=== PATIENT | male | born 1960 | race American Indian/Alaskan Native ===

== ENCOUNTER 2018-06-25 09:52 | Inpatient (IN) | payer MEDICAID, MEDICARE ==
[2018-06-25] MEDS ORDERED: ASPIRIN PO ONE (10:12)
[2018-06-25 10:38] LABS: Basophils % (Auto) 1.2 % (0.0-1.8); Eosinophils # (Auto) 0.1 K/mm3 (0.0-0.4); Eosinophils % (Auto) 1.3 % (0.0-4.3); Hematocrit 36.3 % (35.5-45.6); Hemoglobin 12.3 gm/dl (11.8-15.2); Lymphocytes # (Auto) 1.7 K/mm3 (1.2-5.4); Lymphocytes % (Auto) 40.4 % (13.4-35.0); Mean Corpuscular HGB Conc 34 % (32-34); Mean Corpuscular Volume 89 fl (84-94); Monocytes # (Auto) 0.3 K/mm3 (0.0-0.8); Monocytes % (Auto) 7.5 % (0.0-7.3); Platelet Count 287 K/mm3 (140-440); Red Blood Count 4.07 M/mm3 (3.65-5.03); Red Cell Distribution Width 13.8 % (13.2-15.2)
[2018-06-25 11:01] LABS: BUN/Creatinine Ratio 12; Blood Urea Nitrogen 11 mg/dL (9-20); Calcium 8.7 mg/dL (8.4-10.2); Hemolysis Index 11
[2018-06-25] MEDS ORDERED: SUBLIMAZE IV ONE ×2 (11:12→15:55)
[2018-06-25] MEDS ORDERED: ZOFRAN IV ONE (11:12)
[2018-06-25] MEDS ORDERED: NITRO-BID 2% TP ONE (11:12)
--- NOTE | 2018-06-25 11:16 | Emergency Department Report ---
HPI - General Chief Complaint: Chest Pain Time Seen by Provider: 06/25/18 11:05 - HPI HPI: Room 5 The patient is a 58-year-old male presenting with a chief complaint of chest pain. The patient states the past 2 days he's had left-sided chest pain descri bed as pressure with a pleuritic component. Patient admits to shortness of breath, nausea/vomiting and diaphoresis with chest pain. Patient also complains of bilateral lower extremity pain for one week. Patient denies any recent flights or long car trips. Patient also complains of diffuse weakness. Patient gives his pain a score of 5/10. The patient states he's never had a stress test or cardiac catheterization Location: [See above] Duration: Days Quality: Pressure Severity: [See above] Modifying factors: [see above] Context: [see above] Mode of transportation: [not driving] ED Past Medical Hx - Past Medical History Additional medical history: prostate CA status post cryotherapy - Surgical History Past Surgical History?: No - Family History Family history: no significant - Social History Smoking Status: Never Smoker Substance Use Type: None (denies illicit drug use) - Medications Home Medications: Home Medications Medication Instructions Recorded Confirmed Last Taken Type Buspirone HCl [busPIRone] 15 mg PO BID 06/25/18 06/25/18 Unknown History DULoxetine [Cymbalta] 30 mg PO QDAY 06/25/18 06/25/18 Unknown History Duloxetine HCl [Cymbalta] 60 mg PO QDAY 06/25/18 06/25/18 Unknown History Ergocalciferol (Vitamin D2) 50,000 unit PO QWEEK 06/25/18 06/25/18 Unknown History [Drisdol] Lisinopril [Zestril] 20 mg PO QDAY 06/25/18 06/25/18 Unknown History Lubiprostone [Amitiza] 24 mcg PO BID 06/25/18 06/25/18 Unknown History Tamsulosin HCl [Flomax] 0.4 mg PO DAILY 06/25/18 06/25/18 Unknown History hydroCHLOROthiazide [HCTZ] 25 mg PO QDAY 06/25/18 06/25/18 Unknown History risperiDONE [RisperDAL] 3 mg PO HS 06/25/18 06/25/18 Unknown History ED Review of Systems ROS: Stated complaint: CHEST PAIN Other details as noted in HPI Constitutional: diaphoresis, weakness Eyes: denies: eye pain ENT: denies: throat pain Respiratory: shortness of breath Cardiovascular: chest pain Endocrine: no symptoms reported Gastrointestinal: nausea, vomiting Genitourinary: denies: dysuria Musculoskeletal: denies: back pain Neurological: denies: headache Physical Exam - Physical Exam Vital Signs: Vital Signs 06/25/18 06/25/18 06/25/18 10:11 10:32 10:34 Temperature 97.7 F Pulse Rate 86 63 Respiratory 22 20 21 Rate Blood Pressure 146/90 131/79 [Left] O2 Sat by Pulse 91 100 100 Oximetry Physical Exam: GENERAL: The patient is well-developed well-nourished male lying on stretcher not appearing to be in acute distress. [] HEENT: Normocephalic. Atraumatic. Extraocular motions are intact. Patient has moist mucous membranes. NECK: Supple. Trachea midline CHEST/LUNGS: Clear to auscultation. There is no respiratory distress noted. HEART/CARDIOVASCULAR: Regular. There is no tachycardia. There is no gallop rub or murmur. ABDOMEN: Abdomen is soft, nontender. Patient has normal bowel sounds. There is no abdominal distention. SKIN: There is no rash. There is no edema. There is no diaphoresis. NEURO: The patient is awake, alert, and oriented. The patient is cooperative. The patient has normal speech MUSCULOSKELETAL: There is no evidence of acute injury. ED Course Vital Signs 06/25/18 06/25/18 06/25/18 10:11 10:32 10:34 Temperature 97.7 F Pulse Rate 86 63 Respiratory 22 20 21 Rate Blood Pressure 146/90 131/79 [Left] O2 Sat by Pulse 91 100 100 Oximetry ED Medical Decision Making - Lab Data Result diagrams: 06/25/18 10:27 06/25/18 10:27 Laboratory Tests 06/25/18 06/25/18 06/25/18 10:27 10:27 10:27 WBC 4.2 L RBC 4.07 Hgb 12.3 Hct 36.3 MCV 89 MCH 30 MCHC 34 RDW 13.8 Plt Count 287 Lymph % (Auto) 40.4 H [place] % (Auto) 7.5 H Eos % (Auto) 1.3 Baso % (Auto) 1.2 Lymph # 1.7 [place] # 0.3 Eos # 0.1 Baso # 0.0 Seg Neutrophils % 49.6 Seg Neutrophils # 2.1 D-Dimer 286.68 H Sodium 139 Potassium 3.5 L Chloride 100.5 Carbon Dioxide 22 Anion Gap 20 BUN 11 Creatinine 0.9 Estimated GFR > 60 BUN/Creatinine Ratio 12 Glucose 170 H Calcium 8.7 Troponin T < 0.010 - EKG Data -: EKG Interpreted by [place] EKG shows normal: sinus rhythm Rate: normal - EKG Data When compared to previous EKG there are: previous EKG unavailable Interpretation: nonspecific ST-T wave katya (T-wave inversions in leads V4, V5, V6) - Radiology Data Radiology results: report reviewed (CT chest), image reviewed (CT chest) [facility] [address] [id number] Cat Scan Report Signed Patient: TRISHA LEONARD JR MR#: [id number] : 1960 Acct:[id number] Age/Sex: 58 / M ADM Date: 06/25/18 Loc: ED [facility] Dr: Ordering Physician: WILFREDO WEST MD Date of Service: 06/25/18 Procedure(s): CT angio chest Accession Number(s): [id number] cc: WILFREDO WEST MD FINAL REPORT EXAM: CT ANGIO CHEST HISTORY: chest pain, pleurisy TECHNIQUE: CTA of the chest was performed after the administration of intravenous contrast. Rotating MIPS were included. Reconstructions were included in the coronal and sagittal planes. PRIORS: None. FINDINGS: Pulmonary arteries and thoracic aorta: The study is adequate for diagnostic purposes. No central or segmental pulmonary embolism. The thoracic aorta is normal in caliber. Lungs and airways: No pleural effusion. No airspace consolidation. The airways are patent. No bronchiectasis. No pulmonary nodules or masses. Mediastinum, heart, pericardium: No mediastinal lymphadenopathy. No cardiac chamber enlargement. No pericardial effusion. Thoracic inlet, chest wall, axilla: No chest wall masses. The visualized portions of the thyroid gland demonstrate no focal lesion. No axilla ry lymphadenopathy. Upper abdomen: Colonic diverticulosis is seen. Small probable simple left renal cyst is seen. Bones: Degenerative changes are seen in the spine. IMPRESSION: 1. No central or segmental pulmonary embolism. 2. Colonic diverticulosis. 3. Small probable simple left renal cyst. Transcribed By: MG Dictated By: IBAN LAY MD Electronically Authenticated By: IBAN LAY MD Signed Date/Time: 06/25/181345 DD/ 43 TD/TT: 06/25/18 1344 - Medical Decision Making Heart score = 2 History Slightly suspicious= 0 Moderately suspicious= +1 Highly suspicious= +2 EKG Normal= 0 Nonspecific repolarization disturbance= +[address] depression= +2 Risk factors None= 0 1-2= +1 =/>3 = +2 Initial troponin Normal = 0 1-3 times normal= +1 > 3 times normal equals +2 - Differential Diagnosis ACS, PE, pericarditis, GERD Critical care attestation.: If time is entered above; I have spent that time in minutes in the direct care o f this critically ill patient, excluding procedure time. ED Disposition Clinical Impression: Chest pain Disposition: DC-09 OP ADMIT IP TO THIS HOSP Is pt being admited?: Yes Does the pt Need Aspirin: Yes Condition: Fair Instructions: Chest Pain (ED) Referrals: DARREN GILES MD [Primary Care Provider] - 3-5 Days Time of Disposition: 13:50 (hospitalist paged (Dr Sutton))
--- NOTE | 2018-06-25 13:09 | Vascular Lab Report ---
FINAL REPORT EXAM: VL VENOUS DUPLEX LE BILAT HISTORY: bilateral lower extremity pain TECHNIQUE: Grayscale and color and spectral Doppler ultrasound imaging of the bilateral lower extrem ity was performed for the purposes of assessing for deep venous thrombosis. PRIORS: None. FINDINGS: No evidence of deep venous thrombosis is seen within the common femoral through the posterior tibial and peroneal vein. Normal compression and color flow is seen throughout the venous system of the bila teral lower extremities. Normal augmentation was seen. IMPRESSION: Negative for bilateral lower extremity deep venous thrombosis.
--- NOTE | 2018-06-25 13:46 | Cat Scan Report ---
FINAL REPORT EXAM: CT ANGIO CHEST HISTORY: chest pain, pleurisy TECHNIQUE: CTA of the chest was performed after the administration of intravenous contrast. Rotating MIPS were included. Reconstructions were included in the coronal and sagittal planes. PRIORS: None. FINDINGS: Pulmonary arteries and thoracic aorta: The study is adequate for diagnostic purposes. No central or s egmental pulmonary embolism. The thoracic aorta is normal in caliber. Lungs and airways: No pleural effusion. No airspace consolidation. The airways are patent. No bronchi ectasis. No pulmonary nodules or masses. Mediastinum, heart, pericardium: No mediastinal lymphadenopathy. No cardiac chamber enlargement. No p ericardial effusion. Thoracic inlet, chest wall, axilla: No chest wall masses. The visualized portions of the thyroid glan d demonstrate no focal lesion. No axillary lymphadenopathy. Upper abdomen: Colonic diverticulosis is seen. Small probable simple left renal cyst is seen. Bones: Degenerative changes are seen in the spine. IMPRESSION: 1. No central or segmental pulmonary embolism. 2. Colonic diverticulosis. 3. Small probable simple left renal cyst.
--- NOTE | 2018-06-25 17:26 | History and Physical Report ---
History of Present Illness Date of examination: 06/25/18 Date of admission: 06/25/18 Chief complaint: See H/p in reports History of present illness: See dictated H/p in reports Medications and Allergies Allergies Allergy/AdvReac Type Severity Reaction Status Date / Time No Known Allergies Allergy Unverified 06/25/18 10:12 Home Medications Medication Instructions Recorded Confirmed Last Taken Type RX: Buspirone HCl [busPIRone] 15 mg PO BID 06/25/18 06/25/18 Unknown History RX: DULoxetine [Cymbalta] 30 mg PO QDAY 06/25/18 06/25/18 Unknown History RX: Duloxetine HCl [Cymbalta] 60 mg PO QDAY 06/25/18 06/25/18 Unknown History RX: Ergocalciferol (Vitamin D2) 50,000 unit PO QWEEK 06/25/18 06/25/18 Unknown History [Drisdol] RX: Lisinopril [Zestril] 20 mg PO QDAY 06/25/18 06/25/18 Unknown History RX: Lubiprostone [Amitiza] 24 mcg PO BID 06/25/18 06/25/18 Unknown History RX: Tamsulosin HCl [Flomax] 0.4 mg PO DAILY 06/25/18 06/25/18 Unknown History RX: hydroCHLOROthiazide [HCTZ] 25 mg PO QDAY 06/25/18 06/25/18 Unknown History RX: risperiDONE [RisperDAL] 3 mg PO HS 06/25/18 06/25/18 Unknown History Famotidine [Pepcid] 20 mg PO BID #30 tablet 06/26/18 Unknown Rx RX: Amoxicillin [Trimox CAP] 500 mg PO Q8H #21 capsule 06/26/18 Unknown Rx Exam - Constitutional Vitals: Temp Pulse Resp BP Pulse Ox 97.7 F 57 L 14 132/87 99 06/25/18 10:34 06/25/18 14:11 06/25/18 14:11 06/25/18 14:11 06/25/18 14:11 Results - Labs CBC & Chem 7: 06/26/18 06:21 06/26/18 06:21 Labs: Laboratory Last Values WBC 4.2 K/mm3 (4.5-11.0) L 06/25/18 10:27 RBC 4.07 M/mm3 (3.65-5.03) 06/25/18 10:27 Hgb 12.3 gm/dl (11.8-15.2) 06/25/18 10:27 Hct 36.3 % (35.5-45.6) 06/25/18 10:27 MCV 89 fl (84-94) 06/25/18 10:27 MCH 30 pg (28-32) 06/25/18 10:27 MCHC 34 % (32-34) 06/25/18 10:27 RDW 13.8 % (13.2-15.2) 06/25/18 10:27 Plt Count 287 K/mm3 (140-440) 06/25/18 10:27 Lymph % (Auto) 40.4 % (13.4-35.0) H 06/25/18 10:27 [place] % (Auto) 7.5 % (0.0-7.3) H 06/25/18 10:27 Eos % (Auto) 1.3 % (0.0-4.3) 06/25/18 10:27 Baso % (Auto) 1.2 % (0.0-1.8) 06/25/18 10:27 Lymph # 1.7 K/mm3 (1.2-5.4) 06/25/18 10:27 [place] # 0.3 K/mm3 (0.0-0.8) 06/25/18 10:27 Eos # 0.1 K/mm3 (0.0-0.4) 06/25/18 10:27 Baso # 0.0 K/mm3 (0.0-0.1) 06/25/18 10:27 Seg Neutrophils % 49.6 % (40.0-70.0) 06/25/18 10:27 Seg Neutrophils # 2.1 K/mm3 (1.8-7.7) 06/25/18 10:27 D-Dimer 286.68 ng/mlDDU (0-234) H 06/25/18 10:27 Sodium 139 mmol/L (137-145) 06/25/18 10:27 Potassium 3.5 mmol/L (3.6-5.0) L 06/25/18 10:27 Chloride 100.5 mmol/L (98-107) 06/25/18 10:27 Carbon Dioxide 22 mmol/L (22-30) 06/25/18 10:27 Anion Gap 20 mmol/L 06/25/18 10:27 BUN 11 mg/dL (9-20) 06/25/18 10:27 Creatinine 0.9 mg/dL (0.8-1.5) 06/25/18 10:27 Estimated GFR > 60 ml/min 06/25/18 10:27 BUN/Creatinine Ratio 12 % 06/25/18 10:27 Glucose 170 mg/dL (75-100) H 06/25/18 10:27 Calcium 8.7 mg/dL (8.4-10.2) 06/25/18 10:27 Troponin T < 0.010 ng/mL (0.00-0.029) 06/25/18 13:46
[2018-06-25] MEDS ORDERED: DILAUDID IV PRN (17:41)
[2018-06-25] MEDS ORDERED: ZOFRAN IV PRN (17:41)
[2018-06-25] MEDS ORDERED: TYLENOL PO PRN (17:41)
[2018-06-25] MEDS ORDERED: SODIUM CHLORIDE FLUSH SYRINGE 10 ML IV PRN (17:41)
[2018-06-25] MEDS ORDERED: LOVENOX SUB-Q ONE (18:42)
[2018-06-25] MEDS: LOVENOX SUB-Q SCH (18:50)
[2018-06-25] MEDS ORDERED: AMBIEN PO STA (19:16)
[2018-06-25] MEDS: SODIUM CHLORIDE FLUSH SYRINGE 10 ML IV SCH (21:46)
[2018-06-26] MEDS ORDERED: DUONEB *Not for PRN Use IH (00:51)
[2018-06-26] MEDS ORDERED: NON-FORMULARY (Buspirone Hcl [Buspirone] 15 MG) PO SCH (01:00)
--- NOTE | 2018-06-26 01:03 | History and Physical Report ---
CHIEF COMPLAINT: Left-sided chest pain for 2 days. HISTORY OF PRESENT ILLNESS: A 58-year-old male with history of prostate cancer, status post cryotherapy, comes in for left-sided chest pain of 2 days' duration. Also chest pain associated with shortness of breath, nausea and diaphoresis. No exertional chest pain. Intermittent chest pain about 6 on a scale of 1-10. Dull in character. There is no recent travel. No radiation of the chest pain. No precipitating factors. The patient never had a stress test or cardiac catheterization in the past. PAST MEDICAL HISTORY: As mentioned. Prostate cancer with status post cryotherapy. Depression, hypertension and BPH. PAST SURGICAL HISTORY: None. FAMILY HISTORY: Nothing significant. SOCIAL HISTORY: Does not smoke. No recreational drugs. REVIEW OF SYSTEMS: Significant for left-sided chest pain and shortness of breath. Otherwise, review of systems negative. PHYSICAL EXAMINATION: GENERAL: Middle-aged male, cooperative during examination. VITAL SIGNS: Blood pressure 146/90, temperature 97.7, pulse 86, respirations 22, sats are 91%. Repeat sats 100%. HEENT: Unremarkable. Pupils are equal and reactive. NECK: Supple, no lymphadenopathy, no thyromegaly. LUNGS: Clear to auscultation and percussion. Good air entry. CARDIOVASCULAR: S1, S2 heard. No gallop, no murmur, no rub. Apical impulse in the left fifth intercostal space and midclavicular line. ABDOMEN: Soft and benign. No hepatosplenomegaly. No guarding, no rigidity. Hernial orifices are normal. EXTREMITIES: Good pedal pulses. No pedal edema. SKIN: Normal. LABORATORY DATA: White count is 4200, hemoglobin is 12.3, hematocrit is 36.3, platelet count is 287,000. D-dimer is 286.68. Sodium is 139, potassium is 3.5, chloride is 100.5, bicarbonate is 22, BUN and creatinine 11 and 0.9, glucose is 170. A1c is 5.8, calcium is 8.7. Troponin is 0.010. A CT angiogram of the chest shows no acute pulmonary embolism, colonic diverticulosis, small left renal cyst. Duplex scan of the lower extremities shows negative for bilateral lower extremity deep venous thrombosis. ASSESSMENT AND PLAN: 1. Chest pain, rule out myocardial infarction. Chest pain protocol. 2. Hypokalemia, supplemented. 3. Hypertension. Continue antihypertensives. 4. Benign prostatic hypertrophy. Continue Flomax. 5. Depression. Continue antidepressants. 6. Deep venous thrombosis prophylaxis, Lovenox 40 mg subcutaneous daily. JOB# [id number] [facility]/NTS
[2018-06-26] MEDS ORDERED: PROVENTIL IH PRN (01:27)
[2018-06-26 06:48] LABS: Basophils # (Auto) 0.1 K/mm3 (0.0-0.1); Eosinophils # (Auto) 0.2 K/mm3 (0.0-0.4); Eosinophils % (Auto) 3.3 % (0.0-4.3); Hematocrit 37.9 % (35.5-45.6); Hemoglobin 12.3 gm/dl (11.8-15.2); Lymphocytes % (Auto) 39.7 % (13.4-35.0); Mean Corpuscular HGB Conc 33 % (32-34); Mean Corpuscular Volume 91 fl (84-94); Monocytes # (Auto) 0.7 K/mm3 (0.0-0.8); Platelet Count 280 K/mm3 (140-440); Red Blood Count 4.18 M/mm3 (3.65-5.03); Red Cell Distribution Width 14.2 % (13.2-15.2)
[2018-06-26 07:15] LABS: Alanine Aminotransferase 10 units/L (7-56); Albumin 3.7 g/dL (3.9-5); BUN/Creatinine Ratio 12; Blood Urea Nitrogen 11 mg/dL (9-20); Calcium 8.5 mg/dL (8.4-10.2); Hemolysis Index 47
[2018-06-26] MEDS ORDERED: LEXISCAN IV ONE ×2 (09:16→09:43)
[2018-06-26] MEDS ORDERED: NON-FORMULARY (Lubiprostone [Amitiza] 24 MCG) PO SCH (10:00)
[2018-06-26] MEDS ORDERED: NON-FORMULARY (Duloxetine Hcl [Cymbalta] 60 MG) PO SCH (10:00)
[2018-06-26] MEDS ORDERED: HCTZ PO SCH (10:00)
[2018-06-26] MEDS ORDERED: ZESTRIL PO SCH (10:00)
[2018-06-26] MEDS ORDERED: BUSPAR PO SCH (10:00)
[2018-06-26] MEDS ORDERED: ZOFRAN ONE (10:00)
[2018-06-26] MEDS ORDERED: CYMBALTA PO SCH (10:00)
[2018-06-26] MEDS ORDERED: ROCEPHIN/NS 2 GM/100 ML 2 GM/100 ML BAG IV SCH (10:00)
[2018-06-26] MEDS ORDERED: FLOMAX PO SCH (10:00)
[2018-06-26] MEDS ORDERED: TYLENOL ONE (10:09)
[2018-06-26 10:34] VITALS: BP 117/87
[2018-06-26] MEDS: LOVENOX SUB-Q SCH (12:49)
[2018-06-26] MEDS: SODIUM CHLORIDE FLUSH SYRINGE 10 ML IV SCH (12:50)
--- NOTE | 2018-06-26 14:52 | Discharge Summary ---
Providers - Providers Date of Admission: 06/25/18 17:42 Date of discharge: 06/26/18 Attending physician: INDIA BERGER Primary care physician: DARREN GILES Hospitalization Reason for admission: chest pain Condition: Fair Pertinent studies: CTA :No PE Lower ext Doppler : Neg for DVT Stress test: Small mildischemia,EF 55% med management Hospital course: Patient ws admitted with chest pain,stress test very mild ischemia,med management Elevated d dimers,negative PE and DVT, Patient symptomatically managed, Advised weight reduction . Today patient is comfortable ,no new complaints Vitals stable,Physical exam at discharge is stable Discharge Diagnosis: --Atypical chest pain: --Noncardiac chest pain due to GERD--GERD : protonix --Morbid Obesity:BMI 41.9 --Elevated d dimers --Tooth adn gum infection: Amoxicillin advised to see dentist upon discharge Disposition: DC-01 TO HOME OR SELFCARE Time spent for discharge: 32 min Core Measure Documentation - Palliative Care Palliative Care/ Comfort Measures: Not Applicable - Core Measures Any of the following diagnoses?: none Exam - Constitutional Vitals: Temp Pulse Resp BP Pulse Ox 98.4 F 85 18 117/87 97 06/26/18 08:36 06/26/18 09:46 06/26/18 10:08 06/26/18 09:46 06/26/18 09:46 General appearance: Present: no acute distress, well-nourished - EENT Eyes: Present: PERRL, EOM intact - Neck Neck: Present: supple, normal ROM - Respiratory Respiratory effort: normal Respiratory: bilateral: diminished, negative: rales, rhonchi, wheezing - Cardiovascular Rhythm: regular Heart Sounds: Present: S1 & S2 - Extremities Extremities: no ischemia, No edema - Abdominal General gastrointestinal: Present: soft, non-tender, non-distended, normal bowel sounds - Integumentary Integumentary: Present: clear, warm - Musculoskeletal Musculoskeletal: strength equal bilaterally - Psychiatric Psychiatric: appropriate mood/affect, cooperative - Neurologic Neurologic: CNII-XII intact, moves all extremities Plan Activity: no restrictions Diet: other (cardiac diet) Additional Instructions: If you have chest pain or shortness of breathh,contact MD or go to ER. Advised see private dentist for further evaluation of your teeth and gum problems Follow up with: DARREN GILES MD [Primary Care Provider] - 3-5 Days HAMMAD-REBECCA KILGORE MD [Staff Physician] - 7 Days Prescriptions: Amoxicillin [Trimox CAP] 500 mg PO Q8H #21 capsule Famotidine [Pepcid] 20 mg PO BID #30 tablet
--- NOTE | 2018-06-26 21:03 | Treadmill Report ---
This is a single isotope dual study myocardial perfusion scan report. REFERRING PHYSICIAN: Cayetano Sutton M.D. The patient received 10 mCi of technetium 99m Myoview intravenously under resting conditions. Resting myocardial perfusion scan was done. Subsequently, the patient underwent a Lexiscan stress test as per the protocol. During Lexiscan stress test, the patient received 28 mCi of technetium 99m Myoview intravenously. After 30-60 minutes, post stress images were done. Computerized reconstruction images were performed for analysis. The post-stress images revealed small mild apical perfusion defect seen only in horizontal long axis views. Gated study did not reveal any wall motion abnormality. The left ventricular ejection fraction was normal and was calculated to be 55%. The resting images reveal reversibility of the perfusion defect seen in the stress images. CONCLUSION: 1. Small mild reversible apical perfusion defect seen only in horizontal long axis views that this does not look significant. 2. No wall motion abnormality. 3. Normal left ventricular ejection fraction of 55%. JOB# [id number] [facility]
[2018-06-26] MEDS ORDERED: RisperDAL PO SCH (22:00)
== END 2018-06-26 15:40 | disposition home or self-care (01) | DRG 392 ==
LOC: ED 09:52 → 4A 17:42
PROVIDERS: ADMIT Internal Medicine; ATTEND Internal Medicine
DX: K21.9 Gastro-esophageal reflux disease without esophagitis (principal); R07.9 Chest pain, unspecified; E87.6 Hypokalemia; F32.9 Major depressive disorder, single episode, unspecified; N40.0 Benign prostatic hyperplasia without lower urinary tract symptoms; I10 Essential (primary) hypertension; Z85.46 Personal history of malignant neoplasm of prostate
CPT/HCPCS: 36415; 71275; 78452; 80048; 80053; 83036; 84484; 85025; 85379; 93005; 93010; 93017; 93970; 96372; 96374; 96375; G0378; A9502; J0696; J1170; J1650; J2405; J2785; J3010; Q9967